=== PATIENT | female | born 1990 | race Caucasian/White ===

== ENCOUNTER 2019-04-16 13:39 | Outpatient (CLI) | payer MEDICAID ==
[2019-04-16 13:58] LABS: BASOPHILS % (AUTO) 0.4 %; EOSINOPHILS # (AUTO) 0.2 10^3/uL (0.0-0.7); HGB - HEMOGLOBIN 12.7 g/dL (12.0-16.0); LYMPHOCYTES # (AUTO) 3.6 10^3/uL (1.5-3.5); LYMPHOCYTES % (AUTO) 47.3 %; MEAN CORPUSCULAR HEMOGLOBIN 30.9 pg (27.0-31.0); MEAN CORPUSCULAR HGB CONC 32.7 g/dL (32.0-36.0); MEAN CORPUSCULAR VOLUME 94.4 fL (81.0-99.0); MONOCYTES # (AUTO) 0.5 10^3/uL (0.0-1.0); MONOCYTES % (AUTO) 7.2 %; NEUTROPHILS # (AUTO) 3.2 10^3/uL (1.5-6.6); NEUTROPHILS % (AUTO) 42.8 %; PLT - PLATELET COUNT 311 10^3/uL (130-450); RED BLOOD COUNT 4.11 10^6/uL (4.20-5.40); RED CELL DISTRIBUTION WIDTH 12.7 % (12.0-15.0); WHITE BLOOD COUNT 7.5 x10^3/uL (4.8-10.8)
[2019-04-16 14:14] LABS: ALBUMIN 4.3 g/dL (3.2-5.5); ALBUMIN/GLOBULIN RATIO 1.3 (1.0-2.2); BILIRUBIN,TOTAL 0.7 mg/dL (0.2-1.0); CALCIUM 9.4 mg/dL (8.5-10.3); CREATININE 0.5 mg/dL (0.4-1.0); TOTAL PROTEIN 7.6 g/dL (6.7-8.2)
== END 2019-04-16 13:40 | disposition home or self-care (01) ==
LOC: LAB 13:39
PROVIDERS: ATTEND Registered Nurse
DX: R63.4 Abnormal weight loss (principal); F41.8 Other specified anxiety disorders
CPT/HCPCS: 36415; 80053; 84443; 85025

== ENCOUNTER 2019-05-03 20:08 | Emergency (ER) | payer MEDICAID ==
[2019-05-03] MEDS ORDERED: PROCHLORPERAZINE 10 MG/2 ML VIAL IVP STA (20:41)
[2019-05-03] MEDS ORDERED: KETOROLAC 30 MG/ML VIAL IVP STA (20:41)
[2019-05-03] MEDS ORDERED: diphenhydrAMINE INJ 50 MG/ML VIAL IVP STA (20:41)
[2019-05-03 21:00] VITALS: BP 106/76
--- NOTE | 2019-05-03 21:31 | ED Physician Documentation ---
PD HPI HEADACHE - Stated complaint Stated Complaint: N/V HEADACHE - Chief complaint Chief Complaint: Neuro - History obtained from History obtained from: Patient, Family - History of Present Illness Timing - onset: Today Timing - onset during: Rest Timing - duration: Days (1) Timing - details: Gradual onset Pain level max: 7 Pain level now: 5 Worst headache ever?: No: Worst headache ever? Location: Left Quality: Throbbing, Aching Associated symptoms: Nausea, Other (photophobia). No: Fever, Stiff neck, Vomiting, Weakness, Numbness, Syncope, Seizure Improved by: Rest, Dark room Worsened by: Light, Noise Contributing factors: No: Anticoagulated, Possible carbon monoxide, Hypertension, Recent illness, Trauma Similar symptoms before: Diagnosis (chronic migraines) Recently seen: Not recently seen Review of Systems Constitutional: denies: Fever, Chills Eyes: reports: Photophobia Cardiac: denies: Chest pain / pressure Respiratory: denies: Cough GI: denies: Vomiting, Diarrhea : denies: Dysuria, Now EGA Skin: denies: Rash Musculoskeletal: denies: Neck pain, Back pain Neurologic: denies: Focal weakness, Numbness, Seizure, Confused, Altered mental status PD PAST MEDICAL HISTORY - Past Medical History Past Medical History: Yes Neuro: Migraines Psych: Depression, Anxiety - Past Surgical History Past Surgical History: No - Present Medications Home Medications: Ambulatory Orders Medication Instructions Recorded Confirmed Escitalopram Oxalate [Lexapro] 20 mg PO DAILY 05/03/19 05/03/19 Sumatriptan [Imitrex] 20 mg NS ONCE PRN #7 spray 05/03/19 - Allergies Allergies/Adverse Reactions: Allergies Allergy/AdvReac Type Severity Reaction Status Date / Time latex Allergy Anaphylaxis Verified 05/03/19 20:16 - Social History Does the pt smoke?: No Smoking Status: Never smoker Does the pt drink ETOH?: No Does the pt have substance abuse?: Yes Substance Use and Type: Marijuana PD ED PE NORMAL - Vitals Vital signs reviewed: Yes - General General: Alert and oriented X 3, No acute distress, Well developed/nourished, Other (Patient with sunglasses and a large hat on.) - HEENT HEENT: PERRL, Moist mucous membranes, Pharynx benign, Other (Positive photophobia) - Neck Neck: Supple, no meningeal sign - Cardiac Cardiac: RRR, Strong equal pulses - Respiratory Respiratory: No respiratory distress, Clear bilaterally - Abdomen Abdomen: Soft, Non tender, Non distended - Derm Derm: Warm and dry - Neuro Neuro: Alert and oriented X 3, 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, No motor deficit, No sensory deficit, Normal speech Eye Opening: Spontaneous Motor: Obeys Commands Verbal: Oriented GCS Score: 15 - Psych Psych: Normal mood, Normal affect Results - Vitals Vitals: Vital Signs - 24 hr 05/03/19 05/03/19 05/03/19 20:12 20:59 21:24 Temperature 36.2 C L Heart Rate 96 58 L 57 L Respiratory 18 15 14 Rate Blood Pressure 142/103 H 106/76 106/76 O2 Saturation 100 99 95 Oxygen O2 Source Room air PD MEDICAL DECISION MAKING - ED course Complexity details: re-evaluated patient, considered differential, d/w patient, d/w family ED course: 28-year-old female presents to the emergency department With her usual migraine headache. Given Toradol, Compazine and Benadryl. Symptoms resolved. Will trial on intranasal Imitrex for home. No evidence of subarachnoid hemorrhage. No fevers. Patient and family counseled regarding signs and symptoms for which I believe and urgent re-evaluation would be necessary. Patient with good understanding of and agreement to plan and is comfortable going home at this time This document was made in part using voice recognition software. While efforts are made to proofread this document, sound alike and grammatical errors may occur. Departure - Departure Disposition: 01 Home, Self Care Clinical Impression: Migraine Qualifiers: Migraine type: unspecified Status migrainosus presence: without status migrainosus Intractability: not intractable Qualified Code(s): G43.909 - Migraine, unspecified, not intractable, without status migrainosus Condition: Good Instructions: ED Headache Migraine Follow-Up: Sade Jacob ARNP [Primary Care Provider] - As Needed Prescriptions: Sumatriptan [Imitrex] 20 mg NS ONCE PRN #7 spray PRN Reason: headache Comments: We will try you on intranasal Imitrex. We will see if this helps her symptoms. Return if you worsen. Follow-up with your doctor for further care. Discharge Date/Time: 05/03/19 21:37
== END 2019-05-03 21:37 | disposition home or self-care (01) ==
LOC: ED 20:08
DX: G43.909 Migraine, unspecified, not intractable, without status migrainosus (principal)
CPT/HCPCS: 96374; 96375; 99283; 99284; J1200

== ENCOUNTER 2019-06-27 14:40 | Emergency (ER) | payer MEDICAID ==
[2019-06-27] MEDS ORDERED: KETOROLAC 60 MG/2 ML VIAL IM STA (15:08)
[2019-06-27] MEDS ORDERED: LORazepam 2 MG/ML VIAL IM STA (15:08)
--- NOTE | 2019-06-27 15:11 | ED Physician Documentation ---
History of Present Illness - Stated complaint Stated Complaint: CRAMPS/ANXIETY - Chief complaint Chief Complaint: MHE - History obtained from History obtained from: Patient, Family - History of Present Illness Timing: Today - Additonal information Additional information: 28-year-old female with a history of anxiety and PTSD has significant disease and she is on Lexapro as well as propranolol and she is taking her medication last night she was unable to take her Lexapro this morning secondary to onset of a panic attack. Her panic attacks are characterized by whole body shaking nausea vomiting and diarrhea. She attempted to take Klonopin which is a rescue medicine that she uses and she vomited this. She required the use of the Klonopin yesterday and the day prior. She has increased her dose of Lexapro to 30 mg about 2 weeks ago. She feels that her depression and anxiety have worsened since increasing her dose. Review of Systems Constitutional: denies: Fever Eyes: denies: Decreased vision Ears: denies: Ear pain Nose: denies: Rhinorrhea / runny nose, Reviewed and negative Throat: denies: Sore throat Cardiac: denies: Chest pain / pressure, Palpitations Respiratory: denies: Dyspnea, Cough GI: reports: Abdominal Pain, Nausea, Vomiting : denies: Dysuria, Frequency Skin: denies: Rash Musculoskeletal: denies: Neck pain, Back pain, Extremity pain Neurologic: reports: Other (shaking). denies: Generalized weakness, Focal weakness, Numbness Psychiatric: reports: Depressed, Anxiety. denies: Suicidal, Homicidal PD PAST MEDICAL HISTORY - Past Medical History Neuro: Migraines Psych: Depression, Anxiety - Past Surgical History Past Surgical History: No - Present Medications Home Medications: Ambulatory Orders Medication Instructions Recorded Confirmed Escitalopram Oxalate [Lexapro] 20 mg PO DAILY 05/03/19 05/03/19 Sumatriptan [Imitrex] 20 mg NS ONCE PRN #7 spray 05/03/19 LORazepam [Ativan] 1 mg PO Q6HR PRN #12 tablet 06/27/19 - Allergies Allergies/Adverse Reactions: Allergies Allergy/AdvReac Type Severity Reaction Status Date / Time latex Allergy Anaphylaxis Verified 06/27/19 14:51 - Social History Does the pt smoke?: No Smoking Status: Never smoker Does the pt drink ETOH?: No Does the pt have substance abuse?: Yes PD ED PE NORMAL - Vitals Vital signs reviewed: Yes (hypertensive diastolic) - General General: Alert and oriented X 3, Well developed/nourished, Other (28 y/o female shaking and rocking back and forth appears anxious. 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, No motor deficit, No sensory deficit, Other (speech is quavering) Eye Opening: Spontaneous Motor: Obeys Commands Verbal: Oriented GCS Score: 15 - Psych Psych: Other (mood is anxious affect is flat) Results - Vitals Vitals: Vital Signs - 24 hr 06/27/19 14:47 Temperature 37 C Heart Rate 79 Respiratory 18 Rate Blood Pressure 128/93 H O2 Saturation 100 Oxygen O2 Source Room air PD MEDICAL DECISION MAKING - ED course Complexity details: reviewed old records, reviewed results, re-evaluated patient, considered differential, d/w patient, d/w family ED course: 28-year-old female with a history of severe PTSD and depression and anxiety has developed an acute anxiety attack related to the onset of her menses this morning. She comes into the emergency department with shaking nausea and vomiting and appears quite anxious. She is administered Ativan 2 mg IM as well as Toradol and she has improvement both in the cramping and her anxiety. She has recently had an increase in her dose of Lexapro and she remembers that previously when she was increasing her dose from 10 mg to 20 mg that she took about a month to adjust. She will talk to her psychiatrist about her medications. She is also wondering about control for improvement in her menstrual cycles and she will discuss this with her primary. Departure - Departure Disposition: 01 Home, Self Care Clinical Impression: Panic attack Condition: Stable Instructions: ED Panic Attack, ED Stress React Follow-Up: Sade Jacob ARNP [Primary Care Provider] - Prescriptions: LORazepam [Ativan] 1 mg PO Q6HR PRN #12 tablet PRN Reason: Anxiety
[2019-06-27 16:27] VITALS: BP 114/67
== END 2019-06-27 16:36 | disposition home or self-care (01) ==
LOC: ED 14:40
DX: F41.0 Panic disorder [episodic paroxysmal anxiety] (principal); F32.9 Major depressive disorder, single episode, unspecified; F43.10 Post-traumatic stress disorder, unspecified
CPT/HCPCS: 96372; 99283; J2060

== ENCOUNTER 2019-07-05 07:41 | Emergency (ER) | payer MEDICAID ==
--- NOTE | 2019-07-05 08:40 | ED Physician Documentation ---
PD HPI HEADACHE - Stated complaint Stated Complaint: MIGRAINE - Chief complaint Chief Complaint: Neuro - History obtained from History obtained from: Patient, Family - History of Present Illness Timing - onset: Yesterday Timing - details: Gradual onset Location: Left Quality: Other (Burning and sharp and like her left eye is going to "explode") Associated symptoms: Nausea, Eye pain. No: Fever, Vomiting, Syncope Improved by: Dark room, Quiet Similar symptoms before: Work up / diagnostics Recently seen: Emergency Dept - Additional information Additional information: This is a 28-year-old presents with her mother with complaints that she has a "resilient" migraine that began yesterday. She is taken "everything in her arsenal of Fiorinal and Klonopin and lorazepam and sumatriptan nasal without any relief. She woke up this morning with nausea and increased pain she feels like the left side of her face is burning with sharp pains in her eye is going to explode. She has a history of migraines diagnosed in [place] and had an MRI done 3 years ago but was "left in the dark" regarding the results with the policy from the office that "no news is good news". She has been experiencing headaches every other day recently worse because she just ended her menstrual cycle. She was seen in the emergency department just last week with a headache. She was told by her therapist that she probably has seizures because of her panic attacks were the worst that this is a therapist had ever seen and it turned into a "claustrophobic". She is been nauseous and had dry heaves. She is had diarrhea for the past 4 days. She denies any recent illness of fever, sore throat or stuffy nose. She uses medicinal cannabis 2 puffs on vaping every night for the past 5 years. She denies use of alcohol, other illicit substances or tobacco. She is not currently working and she just moved here in December seeing a local primary care provider and therapist as well as a nurse practitioner this becoming a psychiatrist. She did report that she normally gets Toradol when she comes into the emergency department with these headaches. Review of Systems Constitutional: denies: Fever Eyes: reports: Photophobia. denies: Loss of vision Nose: denies: Rhinorrhea / runny nose Throat: denies: Sore throat Respiratory: denies: Dyspnea, Cough GI: reports: Nausea, Vomiting, Diarrhea : denies: Dysuria, Now LATASHA (Just finished her menstrual cycle) Neurologic: reports: Numbness, Headache. denies: Generalized weakness, Syncope, Confused, Altered mental status, LOC PD PAST MEDICAL HISTORY - Past Medical History Neuro: Migraines Psych: Depression, Anxiety - Past Surgical History Past Surgical History: No - Present Medications Home Medications: Ambulatory Orders Medication Instructions Recorded Confirmed Escitalopram Oxalate [Lexapro] 20 mg PO DAILY 05/03/19 05/03/19 Sumatriptan [Imitrex] 20 mg NS ONCE PRN #7 spray 05/03/19 LORazepam [Ativan] 1 mg PO Q6HR PRN #12 tablet 06/27/19 - Allergies Allergies/Adverse Reactions: Allergies Allergy/AdvReac Type Severity Reaction Status Date / Time latex Allergy Anaphylaxis Verified 07/05/19 07:55 - Social History Does the pt smoke?: No Smoking Status: Never smoker Does the pt drink ETOH?: No Does the pt have substance abuse?: Yes PD ED PE NORMAL - Vitals Vital signs reviewed: Yes - General General: Alert and oriented X 3, No acute distress, Well developed/nourished, Other (Sitting in a darkened room with sunglasses on and her jacket queen pulled up over her head) - HEENT HEENT: Atraumatic, PERRL, EOMI, Moist mucous membranes, Pharynx benign - Neck Neck: Supple, no meningeal sign, No adenopathy, Thyroid normal - Cardiac Cardiac: RRR - Respiratory Respiratory: No respiratory distress - Extremities Extremities: No deformity - Neuro Neuro: Alert and oriented X 3, 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 [id number] is intact.) - Psych Psych: Normal mood, Normal affect Results - Vitals Vitals: Vital Signs - 24 hr 07/05/19 07:50 Temperature 36.7 C Heart Rate 70 Respiratory 18 Rate Blood Pressure 98/64 O2 Saturation 100 Oxygen O2 Source CPAP PD MEDICAL DECISION MAKING - ED course Complexity details: re-evaluated patient, d/w patient, d/w family ED course: Patient had an IV normal saline 1 L, Toradol 30 mg, Reglan 10 mg and Benadryl 25 mg IV. On reevaluation her mother stated that she was "out" and so happy to be out of pain. I did not awaken the patient. They are encouraged to follow-up with the primary care provider and provide referral for neurologist especially concerning the seizure question. Of encouraged her to take the MRI disc that she had done 2 years ago with her to the appointment so that they can try and pull up the imaging and report. Departure - Departure Disposition: 01 Home, Self Care Clinical Impression: Headache Qualifiers: Headache type: unspecified Headache chronicity pattern: episodic headache Condition: Good Instructions: ED Cephalgia Unspecified Follow-Up: Sade Jacob ARNP [Primary Care Provider] - Comments: Follow-up with your primary care provider this week if possible for further evaluation and consideration for referral to neurology for further management of your headaches and neurological symptoms. Return as needed.
[2019-07-05] MEDS ORDERED: KETOROLAC 30 MG/ML VIAL IVP STA (09:04)
[2019-07-05] MEDS ORDERED: METOCLOPRAMIDE 10 MG/2 ML VIAL IVP STA (09:04)
[2019-07-05] MEDS ORDERED: diphenhydrAMINE INJ 50 MG/ML VIAL IVP STA (09:05)
[2019-07-05 10:37] VITALS: BP 88/59
== END 2019-07-05 10:37 | disposition home or self-care (01) ==
LOC: ED 07:41
DX: R51 Headache (principal); R11.2 Nausea with vomiting, unspecified; H57.12 Ocular pain, left eye; R19.7 Diarrhea, unspecified
CPT/HCPCS: 96374; 99283; 99284; J1200; J2765

== ENCOUNTER 2019-09-01 08:00 | Outpatient (CLI) | payer MEDICAID ==
[2019-09-01 20:50] LABS: TRICHOMONAS VAGINALIS DNA NEGATIVE (NEGATIVE)
[2019-09-01 21:25] LABS: CANDIDA GROUP DNA NEGATIVE (NEGATIVE); CANDIDA KRUSEI DNA NEGATIVE (NEGATIVE); TRICHOMONAS VAGINALIS DNA NEGATIVE (NEGATIVE)
== END 2019-09-01 23:59 | disposition home or self-care (01) ==
LOC: LAB.R 08:00
PROVIDERS: ATTEND Registered Nurse
DX: N89.8 Other specified noninflammatory disorders of vagina (principal)
CPT/HCPCS: 87491; 87591; 87661; 87801

== ENCOUNTER 2021-01-16 08:00 | Outpatient (CLI) | payer MEDICAID | END 2021-01-16 23:59 | disposition home or self-care (01) | LOC: LAB.S 08:00 | PROVIDERS: ATTEND Emergency Medicine | DX: L03.114 Cellulitis of left upper limb (principal) | CPT/HCPCS: 87070; 87181; 87205 ==

== ENCOUNTER 2021-06-14 07:00 | Outpatient (CLI) | payer MEDICAID | END 2021-06-14 23:59 | disposition home or self-care (01) | LOC: LAB 07:00 | PROVIDERS: ATTEND Emergency Medicine | DX: J06.9 Acute upper respiratory infection, unspecified (principal); Z20.822 Contact with and (suspected) exposure to COVID-19 ==

== ENCOUNTER 2022-06-26 11:53 | Emergency (ER) | payer MEDICAID ==
--- OUTSIDE RECORDS SUMMARY | 2022-06-26 12:03 | EXTERNAL MEDICAL SUMMARY RPT | Continuity of Care Document ---
:1990 Author Organization [facility] Address [address] [place] [address] Phone Care Team Providers Name Role Phone Cecil Ewa Sade Unavailable Unavailable Allergies No information. Encounters No information. Functional Status No information. Immunizations No information. Medications date description facility [phone] escitalopram oxalate [facility] [phone]+0000 hydroxyzine hcl [facility] [phone]+0000 hydroxyzine hcl [facility] [phone]+0000 escitalopram oxalate [facility] [phone]+0000 hydroxyzine hcl [facility] [phone]+0000 escitalopram oxalate [facility] [phone]+0000 aripiprazole [facility] [phone]+0000 aripiprazole [facility] [phone]+0000 aripiprazole [facility] [phone]+0000 escitalopram oxalate [facility] [phone]+0000 hydroxyzine hcl [facility] [phone]+0000 aripiprazole [facility] Problems No information. Procedures No information. Results/Labs No information. Social History No information. Vital Signs No information.
[2022-06-26] MEDS ORDERED: DROPERIDOL 5 MG/2 ML VIAL IVP STA (12:22)
[2022-06-26] MEDS ORDERED: diphenhydrAMINE INJ 50 MG/ML VIAL IVP STA (12:22)
[2022-06-26] MEDS ORDERED: KETOROLAC 15 MG/ML VIAL IVP STA (12:22)
--- NOTE | 2022-06-26 12:26 | ED Physician Documentation ---
PD HPI MHE - Stated complaint Stated Complaint: MIGRAINE,PANIC ATTACK - Chief complaint Chief Complaint: MHE - History obtained from History obtained from: Patient - Additional information Additional information: 31-year-old woman with chronic migraines and anxiety was lost to follow-up by her psychiatrist And was getting refills of her psychiatric medications from her primary care nurse practitioner. Her nurse practitioner declined to continue refilling Abilify and has been out for a few weeks. This is made her chronic migraines worse with bitemporal pain and vomiting and now panic attacks. When queried about SI, she does have vague SI wondering if it would just be better if she was not here, but no plan or intent. Review of Systems Ten Systems: 10 systems reviewed and negative Constitutional: denies: Fever, Chills Cardiac: denies: Chest pain / pressure, Palpitations Respiratory: denies: Dyspnea, Cough PD PAST MEDICAL HISTORY - Past Medical History Neuro: Migraines Psych: Depression, Anxiety - Past Surgical History Past Surgical History: No - Present Medications Home Medications: Ambulatory Orders Medication Instructions Recorded Confirmed Escitalopram Oxalate [Lexapro] 20 mg PO DAILY 05/03/19 05/03/19 Sumatriptan [Imitrex] 20 mg NS ONCE PRN #7 spray 05/03/19 LORazepam [Ativan] 1 mg PO Q6HR PRN #12 tablet 06/27/19 Aripiprazole [Abilify] 2 mg PO DAILY #60 tablet 06/26/22 clonazePAM [KlonoPIN] 0.5 mg PO TID PRN #20 tablet 06/26/22 - Allergies Allergies/Adverse Reactions: Allergies Allergy/AdvReac Type Severity Reaction Status Date / Time latex Allergy Anaphylaxis Verified 06/26/22 12:03 - Social History Does the pt smoke?: No Smoking Status: Never smoker Does the pt drink ETOH?: No Does the pt have substance abuse?: Yes - Immunizations Immunizations are current?: No PD ED PE NORMAL - Vitals Vital signs reviewed: Yes - General General: Alert and oriented X 3, Other (She is hyperventilating and retching) - HEENT HEENT: PERRL, EOMI, Moist mucous membranes, Pharynx benign - Neck Neck: Supple, no meningeal sign, No bony TTP - Cardiac Cardiac: RRR, No murmur - Respiratory Respiratory: No respiratory distress, Clear bilaterally - Abdomen Abdomen: Non tender - Neuro Neuro: Alert and oriented X 3, 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 I personally placed a 22-gauge IV in the right antecubital fossa using real-time ultrasound guidance after ChloraPrep which flushed and stone well. PD MEDICAL DECISION MAKING - ED course ED course: 31-year-old woman presents with decompensated anxiety due to being out of her Abilify and a migraine headache. The headache is gradual in onset and similar to prior headaches. As such I doubt subarachnoid hemorrhage. There are no infectious symptoms such as fever or stiff neck to make me suspect meningitis. No carbon monoxide exposure by history. After administration of IV droperidol and Benadryl she was feeling much better. The panicky behavior and hyperventilation had ceased. I had put her up for social work consult but they have not been able to get around to her yet and she declined to wait feeling stable and reassured that I would refill her medication. Departure - Departure Disposition: 01 Home, Self Care Clinical Impression: Migraine, Panic attack Condition: Good Record reviewed to determine appropriate education?: Yes Instructions: ED Stress React, ED Headache Migraine Prescriptions: Aripiprazole [Abilify] 2 mg PO DAILY #60 tablet clonazePAM [KlonoPIN] 0.5 mg PO TID PRN #20 tablet PRN Reason: Anxiety Comments: I sent your prescriptions electronically to [facility] in [place]. Do not drink or drive while taking clonazepam Continue your efforts to find a new psychiatrist. Call your doctor to arrange a follow-up appointment, make the next available appointment. In the interim, return anytime if worse or if new symptoms develop.
[2022-06-26 13:50] VITALS: BP 107/64
== END 2022-06-26 13:55 | disposition home or self-care (01) ==
LOC: ED 11:53
DX: G43.909 Migraine, unspecified, not intractable, without status migrainosus (principal); F41.0 Panic disorder [episodic paroxysmal anxiety]
CPT/HCPCS: 96374; 96375; 99283; J1200

== ENCOUNTER 2022-10-15 15:20 | Outpatient (CLI) | payer MEDICAID ==
[2022-10-16 20:19] LABS: CHLAMYDIA TRACHOMATIS DNA NEGATIVE (NEGATIVE); TRICHOMONAS VAGINALIS DNA NEGATIVE (NEGATIVE)
[2022-10-16 20:20] LABS: NEISSERIA GONORRHOEAE DNA NEGATIVE (NEGATIVE)
[2022-10-18 09:09] LABS: HSV-1 DNA Negative (Negative); HSV-2 DNA Negative (Negative)
== END 2022-10-15 23:59 | disposition home or self-care (01) ==
LOC: LAB.WC 15:20
PROVIDERS: ATTEND Nurse Practitioner
DX: Z11.3 Encounter for screening for infections with a predominantly sexual mode of transmission (principal)
CPT/HCPCS: 87491; 87529; 87591; 87661

== ENCOUNTER 2022-10-15 15:31 | Outpatient (CLI) | payer MEDICAID ==
[2022-10-15 15:53] LABS: BASOPHILS % (AUTO) 0.3 %; EOSINOPHILS # (AUTO) 0.2 10^3/uL (0.0-0.7); HCT - HEMATOCRIT 40.8 % (37.0-47.0); HGB - HEMOGLOBIN 12.6 g/dL (12.0-16.0); LYMPHOCYTES # (AUTO) 3.1 10^3/uL (1.5-3.5); LYMPHOCYTES % (AUTO) 33.7 %; MEAN CORPUSCULAR HEMOGLOBIN 27.5 pg (27.0-31.0); MEAN CORPUSCULAR HGB CONC 30.9 g/dL (32.0-36.0); MEAN CORPUSCULAR VOLUME 88.9 fL (81.0-99.0); MEAN PLATELET VOLUME 8.8 fL (7.9-10.8); MONOCYTES # (AUTO) 0.6 10^3/uL (0.0-1.0); MONOCYTES % (AUTO) 7.1 %; NEUTROPHILS # (AUTO) 5.1 10^3/uL (1.5-6.6); NEUTROPHILS % (AUTO) 56.8 %; PLT - PLATELET COUNT 439 10^3/uL (130-450); RED BLOOD COUNT 4.59 10^6/uL (4.20-5.40); RED CELL DISTRIBUTION WIDTH 13.6 % (12.0-15.0); WHITE BLOOD COUNT 9.1 x10^3/uL (4.8-10.8)
[2022-10-15 16:23] LABS: ALBUMIN 4.1 g/dL (3.2-5.5); ALBUMIN/GLOBULIN RATIO 1.1 (1.0-2.2); ALKALINE PHOSPHATASE 65 IU/L (42-121); ALT ALANINE AMINOTRANSFERASE 24 IU/L (10-60); AST ASPARTATE AMINOTRANSFERASE 23 IU/L (10-42); BILIRUBIN,TOTAL 0.5 mg/dL (0.2-1.0); BUN - BLOOD UREA NITROGEN 9 mg/dL (6-20); CALCIUM 9.3 mg/dL (8.5-10.3); CARBON DIOXIDE - CO2 26 mmol/L (21-32); CHLORIDE 107 mmol/L (101-111); CHOL/HDL RATIO 4.1 (<4.4); CHOLESTEROL 227 mg/dL; CREATININE 0.5 mg/dL (0.4-1.0); GFR - MDRD 142 (>89); GLUCOSE 104 mg/dL (70-100); HDL CHOLESTEROL 56 mg/dL; LDL CHOLESTEROL,CALCULATED 144 mg/dL; LDL/HDL RATIO 2.6 (<4.4); POTASSIUM 3.8 mmol/L (3.5-5.0); SODIUM 140 mmol/L (135-145); TOTAL PROTEIN 7.7 g/dL (6.7-8.2); TRIGLYCERIDES 135 mg/dL; VLDL CHOLESTEROL 27 mg/dL
[2022-10-15 16:41] LABS: THYROID STIMULATING HORMONE 1.63 uIU/mL (0.34-5.60)
[2022-10-16 03:09] LABS: RPR Non Reactive (Non Reactive)
[2022-10-16 04:09] LABS: HBsAG SCREEN Negative (Negative)
[2022-10-16 06:09] LABS: HIV SCREEN 4TH GENERATION Non Reactive (Non Reactive); HSV 2 IGG TYPE SPEC <0.91 index (0.00-0.90)
[2022-10-16 07:10] LABS: HCV AB Non Reactive (Non Reactive)
== END 2022-10-15 15:32 | disposition home or self-care (01) ==
LOC: LAB 15:31
PROVIDERS: ATTEND Nurse Practitioner
DX: Z32.00 Encounter for pregnancy test, result unknown (principal); Z79.899 Other long term (current) drug therapy
CPT/HCPCS: 36415; 80053; 80061; 83721; 84443; 84702; 85025; 86592; 86695; 86696; 86803; 87340; 87389; 87491; 87529; 87591; 87661

== ENCOUNTER 2022-10-16 15:20 | Outpatient (CLI) | payer MEDICAID ==
[2022-10-17 22:24] LABS: BACTERIAL VAGINOSIS DNA NEGATIVE (NEGATIVE); CANDIDA GLABRATA DNA NEGATIVE (NEGATIVE); CANDIDA GROUP DNA NEGATIVE (NEGATIVE); CANDIDA KRUSEI DNA NEGATIVE (NEGATIVE); TRICHOMONAS VAGINALIS DNA NEGATIVE (NEGATIVE)
== END 2022-10-16 23:59 | disposition home or self-care (01) ==
LOC: LAB.WC 15:20
PROVIDERS: ATTEND Nurse Practitioner
DX: N90.89 Other specified noninflammatory disorders of vulva and perineum (principal); N89.8 Other specified noninflammatory disorders of vagina
CPT/HCPCS: 81514; 87070

== ENCOUNTER 2023-04-11 08:00 | Outpatient (CLI) | payer MEDICAID ==
[2023-04-11 16:21] LABS: BILIRUBIN,URINE NEGATIVE (NEGATIVE); CLARITY,URINE CLEAR (CLEAR); GLUCOSE, URINE (UA) NEGATIVE (NEGATIVE); KETONES,URINE (UA) NEGATIVE (NEGATIVE); LEUKOCYTE ESTERASE, URINE TRACE (NEGATIVE); NITRITE,URINE NEGATIVE (NEGATIVE); OCCULT BLOOD,URINE NEGATIVE (NEGATIVE); PH,URINE 5.5 PH (5.0-7.5); PROTEIN,URINE NEGATIVE (NEGATIVE); UROBILINOGEN,URINE 0.2 (NORMAL) E.U./dL (NORMAL)
[2023-04-11 16:58] LABS: BACTERIA,URINE Rare /HPF (None Seen); RBC,URINE None Seen /HPF (0-5); SQUAMOUS EPITHELIAL CELL,UR RARE Squamous (<= Few)
[2023-04-11 19:53] LABS: BACTERIAL VAGINOSIS DNA NEGATIVE (NEGATIVE); CANDIDA GLABRATA DNA NEGATIVE (NEGATIVE); CANDIDA GROUP DNA NEGATIVE (NEGATIVE); CANDIDA KRUSEI DNA NEGATIVE (NEGATIVE); TRICHOMONAS VAGINALIS DNA NEGATIVE (NEGATIVE)
[2023-04-11 21:26] LABS: CHLAMYDIA TRACHOMATIS DNA NEGATIVE (NEGATIVE); NEISSERIA GONORRHOEAE DNA NEGATIVE (NEGATIVE)
== END 2023-04-11 23:59 | disposition home or self-care (01) ==
LOC: LAB.WC 08:00
PROVIDERS: ATTEND Nurse Practitioner
DX: R30.0 Dysuria (principal); L29.8 Other pruritus; Z11.3 Encounter for screening for infections with a predominantly sexual mode of transmission
CPT/HCPCS: 81001; 81514; 87077; 87086; 87181; 87491; 87591; 87661